=== PATIENT | male | born 1935 | race Caucasian/White ===

== ENCOUNTER 2018-01-27 21:07 | Emergency (ER) | payer MEDICARE, OTHER ==
--- NOTE | 2018-01-27 21:33 | EDM.PDOC ---
ED HPI GENERAL MEDICAL PROBLEM - General Chief Complaint: Back Pain or Injury Stated Complaint: FELL [id number] Time Seen by Provider: 01/27/18 21:28 Source of Information: Reports: Patient, Family History Limitations: Reports: No Limitations - History of Present Illness INITIAL COMMENTS - FREE TEXT/NARRATIVE: pt states got up from commode and slipped on rug and fell to floor ? LOC but got back up by self and called family. family states pt was alert c/o pain right if back and also bumped his head. family state pt did take a pain med [employer] so he can move better. Middle Back Pain Score (Numeric/FACES): 9 - Related Data Allergies Allergy/AdvReac Type Severity Reaction Status Date / Time codeine Allergy Nausea and Verified 01/27/18 22:00 Vomiting Home Meds: Home Meds Donepezil HCl [Aricept] 10 mg PO DAILY 01/27/18 [History] Escitalopram [Lexapro] 10 mg PO DAILY 01/27/18 [History] Famotidine 20 mg PO DAILY 01/27/18 [History] Hydrocodone/Acetaminophen [Hydrocodon-Acetaminophen 5-325] 1 each PO ASDIRECTED PRN 01/27/18 [History] Levothyroxine Sodium [Levo-T] 50 mcg PO DAILY 01/27/18 [History] Memantine HCl [Namenda] 10 mg PO BID 01/27/18 [History] Oxybutynin Chloride [Ditropan Xl] 5 mg PO DAILY 01/27/18 [History] ED ROS GENERAL - Review of Systems Review Of Systems: ROS reveals no pertinent complaints other than HPI. ED EXAM, UPPER BACK/NECK PAIN - Physical Exam Exam: See Below Exam Limited By: No Limitations General Appearance: Alert, WD/WN, No Apparent Distress Eye Exam: Bilateral Eye: PERRL (pupils ess ER @ 4mm) Ears Exam: Hearing Grossly Normal Throat/Mouth Exam: Normal Voice, No Airway Compromise Head Exam: Scalp Swelling, Scalp Abrasions, Scalp Tenderness, Other (occiput , no O/B) Neck Exam: Full Range of Motion, Normal Alignment, Normal Inspection, Muscle Spasm, Other (right scap region) Nexus Criteria: No: Posterior, Midline Cervical Tenderness, Evidence of Intoxication, Altered Level of Consciousness, Focal Neurological Deficit, Painful Distraction Injuries Cardiovascular/Respiratory: Regular Rate, Rhythm GI/Abdominal: Soft, Non-Tender Neurologic: No Motor/Sensory Deficits, Alert, Normal Mood/Affect, Oriented x 3 Psychiatric: Normal Affect, Normal Mood Skin Exam: Normal Color, Warm/Dry Lymphatic: No Adenopathy Course - Vital Signs Last Recorded V/S: Last Vital Signs Temp 36.8 C 01/27/18 21:23 Pulse 50 L 01/27/18 21:23 Resp 18 01/27/18 21:23 BP 119/90 01/27/18 21:23 Pulse Ox 94 L 01/27/18 21:23 - Orders/Labs/Meds Orders: Active Orders 24 hr Category Date Time Status EKG Documentation Completion [RC] STAT Care 01/27/18 21:18 Active Labs: Laboratory Tests 01/27/18 01/27/18 Range/Units 21:25 21:25 WBC 14.5 H (5.0-10.0) 10^3/uL RBC 4.71 (4.6-6.2) 10^6/uL Hgb 14.5 (14.0-18.0) g/dL Hct 44.8 (40.0-54.0) % MCV 95.1 (80-100) fL MCH 30.8 (27.0-34.0) pg MCHC 32.4 L (33.0-35.0) g/dL Plt Count 255 (150-450) 10^3/uL Neut % (Auto) 80.4 H (42.2-75.2) % Lymph % (Auto) 9.4 L (20.5-50.1) % [place] % (Auto) 7.7 (2-8) % Eos % (Auto) 2.3 (1.0-3.0) % Baso % (Auto) 0.2 (0.0-1.0) % Sodium 136 (135-145) mmol/L Potassium 4.3 (3.6-5.0) mmol/L Chloride 99 L (101-111) mmol/L Carbon Dioxide 30.0 (21.0-31.0) mmol/L Anion Gap 11.3 BUN 21 H (7-18) mg/dL Creatinine 1.0 (0.6-1.3) mg/dL Est Cr Clr Drug Dosing 50.51 mL/min Estimated GFR (MDRD) > 60 BUN/Creatinine Ratio 21.00 Glucose 131 H (74-105) mg/dL Calcium 9.8 (8.4-10.2) mg/dl Total Bilirubin 0.5 (0.2-1.0) mg/dL AST 23 (10-42) IU/L ALT 18 (10-60) IU/L Alkaline Phosphatase 62 (42-121) IU/L Troponin I < 0.02 (0.00-0.02) ng/ml Total Protein 7.3 (6.7-8.2) g/dl Albumin 3.9 (3.2-5.5) g/dl Globulin 3.4 Albumin/Globulin Ratio 1.15 - Re-Assessments/Exams Free Text/Narrative Re-Assessment/Exam: 01/27/18 22:56 results discussed with pt & family Departure - Departure Time of Disposition: 22:56 Disposition: Home, Self-Care 01 Condition: Fair Clinical Impression: Left rib fracture Qualifiers: Encounter type: initial encounter Rib fracture type: multiple ribs Fracture type: closed Qualified Code(s): S22.42XA - Multiple fractures of ribs, left side , initial encounter for closed fracture - Discharge Information Instructions: Rib Fracture, [id number] Forms: ED Department Discharge Additional Instructions: 1) rest avoid vigorous activities 2) take regular deep breaths 3) follow up at clinic 4) recheck if there is any change or concern - My Orders Last 24 Hours: My Active Orders 01/27/18 21:18 EKG Documentation Completion [RC] STAT - Assessment/Plan Last 24 Hours: My Active Orders 01/27/18 21:18 EKG Documentation Completion [RC] STAT
[2018-01-27 21:53] LABS: ANION GAP 11.3; CHLORIDE,CL 99 mmol/L (101-111); SODIUM,NA 136 mmol/L (135-145)
== END 2018-01-27 23:05 | disposition home or self-care (01) ==
LOC: DL.ED 21:07
DX: S22.42XA Multiple fractures of ribs, left side, initial encounter for closed fracture (principal); S00.01XA Abrasion of scalp, initial encounter; Z88.5 Allergy status to narcotic agent; Z79.899 Other long term (current) drug therapy; W01.0XXA Fall on same level from slipping, tripping and stumbling without subsequent striking against object, initial encounter; Y92.002 Bathroom of unspecified non-institutional (private) residence as the place of occurrence of the external cause
CPT/HCPCS: 36415; 70450; 71250; 72125; 80053; 84484; 85025; 93005; 99284

== ENCOUNTER 2018-01-30 09:44 | Observation (INO) | payer MEDICARE, OTHER ==
--- NOTE | 2018-01-30 10:01 | EDM.PDOC ---
ED HPI GENERAL MEDICAL PROBLEM - General Chief Complaint: Neurological Problem Stated Complaint: INCREASE CONFUSION. POST FALL 02/26 Time Seen by Provider: 01/30/18 10:00 Source of Information: Reports: Patient, Family (daughter), Old Records, RN, RN Notes Reviewed History Limitations: Reports: Altered Mental Status - History of Present Illness INITIAL COMMENTS - FREE TEXT/NARRATIVE: Pt arrives to ER by ambulance with EMS and pt's daughter reporting pt has acute confusion and disorientation worsening over 2 to 3 days. Pt was seen here on after a fall in his bathroom. He has Hx of dementia. He has been on hydrocodone 5mg/325mg every 4 hours since being discharged from the ER on . Pt is not able to provide any history. Pt's daughter states his dementia has been slowly worsening this past year. She isn't sure if the acute confusion is due to the recent fall, due to progressive dementia, or due to the medication. Pt had a CT Head on 01/27/18 after the fall which showed no acute injury. Onset: Gradual Duration: Day(s): (2-3) Location: Reports: Generalized Quality: Reports: Other (denies pain) Severity: Severe Improves with: Reports: None Worsens with: Reports: Medication (hydrocodone) Associated Symptoms: Reports: No Other Symptoms - Related Data Allergies Allergy/AdvReac Type Severity Reaction Status Date / Time codeine Allergy Nausea and Verified 01/30/18 10:20 Vomiting Home Meds: Home Meds Donepezil HCl [Aricept] 10 mg PO DAILY 01/27/18 [History] Escitalopram [Lexapro] 10 mg PO DAILY 01/27/18 [History] Famotidine 20 mg PO DAILY 01/27/18 [History] Hydrocodone/Acetaminophen [Hydrocodon-Acetaminophen 5-325] 1 each PO ASDIRECTED PRN 01/27/18 [History] Levothyroxine Sodium [Levo-T] 50 mcg PO DAILY 01/27/18 [History] Memantine HCl [Namenda] 10 mg PO BID 01/27/18 [History] Oxybutynin Chloride [Ditropan Xl] 5 mg PO TID 01/27/18 [History] Acetaminophen [Tylenol] 650 mg PO Q8H PRN 01/30/18 [History] Gabapentin [Neurontin] 200 mg PO DAILY 01/30/18 [History] Menthol/Zinc Oxide [Calmoseptine] 3.5 gm TOP BID 01/30/18 [History] Naproxen Sodium [Aleve] 220 mg PO BID 01/30/18 [History] Polyethylene Glycol 3350 [MiraLAX] 17 gm PO BID 01/30/18 [History] Tamsulosin HCl 0.4 mg PO 01/30/18 [History] Past Medical History HEENT History: Reports: Hard of Hearing, Impaired Vision Gastrointestinal History: Reports: Chronic Constipation, GERD Genitourinary History: Reports: BPH, Prostate Disorder, Renal Calculus, Retention, Urinary, Urinary Incontinence Musculoskeletal History: Reports: Fracture (Rt clavicle, multiple ribs) Neurological History: Reports: Alzheimers Disease Psychiatric History: Reports: Dementia, Depression Endocrine/Metabolic History: Reports: Hypothyroidism, Obesity/BMI 30+ - Past Surgical History Musculoskeletal Surgical History: Reports: ORIF (Rt clavicle) Social & Family History - Family History Family Medical History: Unobtainable - Tobacco Use Smoking Status *Q: Unknown Ever Smoked - Caffeine Use Caffeine Use: Reports: None - Alcohol Use Alcohol Use History: No - Recreational Drug Use Recreational Drug Use: No - Living Situation & Occupation Living situation: Reports: , Assisted Living Occupation: Retired ED ROS GENERAL - Review of Systems Review Of Systems: Unable To Obtain (due to confusion) ED EXAM, GENERAL - Physical Exam Exam: See Below Exam Limited By: Altered Mental Status General Appearance: Alert, WD/WN, No Apparent Distress, Obese Eye Exam: Bilateral Eye: Normal Inspection Ears: Normal External Exam, Hearing Loss (mild/moderate, chronic/stable per family) Nose: Normal Inspection, Normal Mucosa, No Blood Throat/Mouth: Normal Inspection, Normal Lips, Normal Oropharynx, Normal Voice, No Airway Compromise Head: Atraumatic, Normocephalic Neck: Normal Inspection, Supple, Non-Tender, Full Range of Motion Respiratory/Chest: No Respiratory Distress, Lungs Clear, No Accessory Muscle Use , Chest Non-Tender, Decreased Breath Sounds Cardiovascular: Normal Peripheral Pulses, Regular Rate, Rhythm, No JVD, Bradycardia GI/Abdominal: Normal Bowel Sounds, Soft, Non-Tender, No Distention, No Abnormal Bruit, Pelvis Stable. No: Guarding, Rigid, Rebound (Male) Exam: Deferred Rectal (Males) Exam: Deferred Back Exam: Normal Inspection, Full Range of Motion. No: CVA Tenderness (L), CVA Tenderness (R) Extremities: Normal Range of Motion, Non-Tender, Normal Capillary Refill, Pedal Edema (mild, wearing compression stockings) Neurological: Alert, Oriented (to person only), No Motor/Sensory Deficits, Confused, Memory Loss Recent Events Psychiatric: Normal Affect, Normal Mood Skin Exam: Warm, Dry, Intact, Normal Color, No Rash Course - Vital Signs Last Recorded V/S: Last Vital Signs Temp 37.1 C 01/30/18 09:58 Pulse 60 01/30/18 09:58 Resp 16 01/30/18 09:58 BP 144/53 H 01/30/18 09:58 Pulse Ox 95 01/30/18 09:58 - Orders/Labs/Meds Orders: Active Orders 24 hr Category Date Time Status Peripheral IV Care [RC] . DIRECTED Care 01/30/18 10:25 Active CULTURE BLOOD [BC] Stat Lab 01/30/18 10:25 Ordered CULTURE BLOOD [BC] Stat Lab 01/30/18 10:40 Received Sodium Chloride 0.9% [Saline Flush] Med 01/30/18 10:21 Active 10 ml FLUSH ASDIRECTED PRN Blood Culture x2 Reflex Set [OM.PC] Stat Oth 01/30/18 10:23 Ordered Peripheral IV Insertion Adult [OM.PC] Stat Oth 01/30/18 10:23 Ordered Medication Orders Sodium Chloride (Saline Flush) 10 ml FLUSH ASDIRECTED PRN PRN Reason: Keep Vein Open Last Admin: 01/30/18 10:58 Dose: 10 ml Labs: Laboratory Tests 01/30/18 01/30/18 01/30/18 Range/Units 10:23 10:30 10:40 WBC 10.1 H (5.0-10.0) 10^3/uL RBC 4.35 L (4.6-6.2) 10^6/uL Hgb 13.5 L (14.0-18.0) g/dL Hct 41.6 (40.0-54.0) % MCV 95.6 (80-100) fL MCH 31.0 (27.0-34.0) pg MCHC 32.5 L (33.0-35.0) g/dL Plt Count 229 (150-450) 10^3/uL Neut % (Auto) 75.2 (42.2-75.2) % Lymph % (Auto) 10.0 L (20.5-50.1) % [place] % (Auto) 11.3 H (2-8) % Eos % (Auto) 3.3 H (1.0-3.0) % Baso % (Auto) 0.2 (0.0-1.0) % Sodium (135-145) mmol/L Potassium (3.6-5.0) mmol/L Chloride (101-111) mmol/L Carbon Dioxide (21.0-31.0) mmol/L Anion Gap BUN (7-18) mg/dL Creatinine (0.6-1.3) mg/dL Est Cr Clr Drug Dosing mL/min Estimated GFR (MDRD) BUN/Creatinine Ratio Glucose (74-105) mg/dL Lactic Acid (0.5-2.2) mmol/L Calcium (8.4-10.2) mg/dl Total Bilirubin (0.2-1.0) mg/dL AST (10-42) IU/L ALT (10-60) IU/L Alkaline Phosphatase (42-121) IU/L Total Protein (6.7-8.2) g/dl Albumin (3.2-5.5) g/dl Globulin Albumin/Globulin Ratio Urine Color Yellow (YELLOW) Urine Appearance Clear (CLEAR) Urine pH 6.0 (5.0-9.0) Ur Specific [place] 1.020 (1.005-1.030) Urine Protein Negative (NEGATIVE) Urine Glucose (UA) Negative (NEGATIVE) Urine Ketones Negative (NEGATIVE) Urine Occult Blood Trace-intact H (NEGATIVE) Urine Nitrite Negative (NEGATIVE) Urine Bilirubin Negative (NEGATIVE) Urine Urobilinogen 0.2 (0.2-1.0) mg/dL Ur Leukocyte Esterase Negative (NEGATIVE) Urine RBC 0-5 /HPF Urine WBC 0-5 (0-5/HPF) /HPF Ur Epithelial Cells Rare /HPF Amorphous Sediment Few (0/HPF) /HPF Urine Bacteria Not seen (0-FEW/HPF) /HPF Urine Mucus Moderate H /LPF Urine Opiates Screen Positive H (NEGATIVE) Ur Oxycodone Screen Negative (NEGATIVE) Urine Methadone Screen Negative (NEGATIVE) Ur Barbiturates Screen Negative (NEGATIVE) U Tricyclic Antidepress Negative (NEGATIVE) Ur Phencyclidine Scrn Negative (NEGATIVE) Ur Amphetamine Screen Negative (NEGATIVE) U Methamphetamines Scrn Negative (NEGATIVE) Urine MDMA Screen Negative (NEGATIVE) U Benzodiazepines Scrn Negative (NEGATIVE) Urine Cocaine Screen Negative (NEGATIVE) U Marijuana (THC) Screen Negative (NEGATIVE) 01/30/18 01/30/18 Range/Units 10:40 10:40 WBC (5.0-10.0) 10^3/uL RBC (4.6-6.2) 10^6/uL Hgb (14.0-18.0) g/dL Hct (40.0-54.0) % MCV (80-100) fL MCH (27.0-34.0) pg MCHC (33.0-35.0) g/dL Plt Count (150-450) 10^3/uL Neut % (Auto) (42.2-75.2) % Lymph % (Auto) (20.5-50.1) % [place] % (Auto) (2-8) % Eos % (Auto) (1.0-3.0) % Baso % (Auto) (0.0-1.0) % Sodium 137 (135-145) mmol/L Potassium 4.5 (3.6-5.0) mmol/L Chloride 100 L (101-111) mmol/L Carbon Dioxide 30.0 (21.0-31.0) mmol/L Anion Gap 11.5 BUN 22 H (7-18) mg/dL Creatinine 0.9 (0.6-1.3) mg/dL Est Cr Clr Drug Dosing 60.17 mL/min Estimated GFR (MDRD) > 60 BUN/Creatinine Ratio 24.44 Glucose 100 (74-105) mg/dL Lactic Acid 1.7 (0.5-2.2) mmol/L Calcium 9.5 (8.4-10.2) mg/dl Total Bilirubin 0.7 (0.2-1.0) mg/dL AST 24 (10-42) IU/L ALT 21 (10-60) IU/L Alkaline Phosphatase 65 (42-121) IU/L Total Protein 6.8 (6.7-8.2) g/dl Albumin 3.5 (3.2-5.5) g/dl Globulin 3.3 Albumin/Globulin Ratio 1.06 Urine Color (YELLOW) Urine Appearance (CLEAR) Urine pH (5.0-9.0) Ur Specific [place] (1.005-1.030) Urine Protein (NEGATIVE) Urine Glucose (UA) (NEGATIVE) Urine Ketones (NEGATIVE) Urine Occult Blood (NEGATIVE) Urine Nitrite (NEGATIVE) Urine Bilirubin (NEGATIVE) Urine Urobilinogen (0.2-1.0) mg/dL Ur Leukocyte Esterase (NEGATIVE) Urine RBC /HPF Urine WBC (0-5/HPF) /HPF Ur Epithelial Cells /HPF Amorphous Sediment (0/HPF) /HPF Urine Bacteria (0-FEW/HPF) /HPF Urine Mucus /LPF Urine Opiates Screen (NEGATIVE) Ur Oxycodone Screen (NEGATIVE) Urine Methadone Screen (NEGATIVE) Ur Barbiturates Screen (NEGATIVE) U Tricyclic Antidepress (NEGATIVE) Ur Phencyclidine Scrn (NEGATIVE) Ur Amphetamine Screen (NEGATIVE) U Methamphetamines Scrn (NEGATIVE) Urine MDMA Screen (NEGATIVE) U Benzodiazepines Scrn (NEGATIVE) Urine Cocaine Screen (NEGATIVE) U Marijuana (THC) Screen (NEGATIVE) Meds: Medications Generic Name Dose Route Start Last Admin Trade Name Freq PRN Reason Stop Dose Admin Sodium Chloride 10 ml 01/30/18 10:21 01/30/18 10:58 Saline Flush FLUSH 10 ml ASDIRECTED PRN Administration Keep Vein Open - Radiology Interpretation Free Text/Narrative:: Chest XR: no acute findings, prior fractures of Rt 3rd & 4th ribs, old Rt clavicle fx s/p ORIF with intact hardware, stable left base atelectasis per Rad. report. Departure - Departure Time of Disposition: 12:14 (admitted to Dr. Martinez) Disposition: Refer to Observation Condition: Fair Clinical Impression: History of dementia Altered mental status Qualifiers: Altered mental status type: delirium Qualified Code(s): R41.0 - Disorientation , unspecified - Discharge Information *PRESCRIPTION DRUG MONITORING PROGRAM REVIEWED*: Not Applicable *COPY OF PRESCRIPTION DRUG MONITORING REPORT IN PATIENT ALE: Not Applicable Referrals: Maria Del Rosario Turner PA [Primary Care Provider] - Forms: ED Department Discharge - My Orders Last 24 Hours: My Active Orders 01/30/18 10:21 Sodium Chloride 0.9% [Saline Flush] 10 ml FLUSH ASDIRECTED PRN 01/30/18 10:23 Blood Culture x2 Reflex Set [OM.PC] Stat Peripheral IV Insertion Adult [OM.PC] Stat 01/30/18 10:25 Peripheral IV Care [RC] . DIRECTED CULTURE BLOOD [BC] Stat 01/30/18 10:40 CULTURE BLOOD [BC] Stat - Assessment/Plan Last 24 Hours: My Active Orders 01/30/18 10:21 Sodium Chloride 0.9% [Saline Flush] 10 ml FLUSH ASDIRECTED PRN 01/30/18 10:23 Blood Culture x2 Reflex Set [OM.PC] Stat Peripheral IV Insertion Adult [OM.PC] Stat 01/30/18 10:25 Peripheral IV Care [RC] . DIRECTED CULTURE BLOOD [BC] Stat 01/30/18 10:40 CULTURE BLOOD [BC] Stat
[2018-01-30] MEDS ORDERED: Sodium Chloride 0.9% 10 ML Syringe FLUSH PRN (10:21)
[2018-01-30 11:14] LABS: ANION GAP 11.5; CHLORIDE,CL 100 mmol/L (101-111); SODIUM,NA 137 mmol/L (135-145)
--- NOTE | 2018-01-30 12:04 | CR ---
Clinical history: 82-year-old male on pain killers to treat multiple right rib fractures (fell Dec). Interpretation: Upright AP portable chest film confirms evidence of extensive right shoulder surgery (orthopedic prosthesis proximal right humerus and plate with numerous screws distal half of the clavi karuna) as well as numerous underlying lateral right rib fractures with associated pleural hematoma/fibr osis that were demonstrated on [address] exam i.e. unchanged. Normal cardiac silhouette. Left-sided aortic arch. No cephalization of flow, signs of alveolar edema or dependent pleural effusion (external campus monitor leads). Chronic basilar atelectasis/fibrosis particularly on the left. No new lung mass, hilar lymphadenopathy or focal lobar pneumonia. No pneumothorax. CONCLUSION: No acute new cardiopulmonary abnormality.
[2018-01-30] MEDS ORDERED: Ibuprofen 400 MG Tab PO PRN (15:40)
--- NOTE | 2018-01-30 15:50 | PCM.HP ---
H&P History of Present Illness - General Date of Service: 01/30/18 Admit Problem/Dx: Admission Diagnosis/Problem Admission Diagnosis/Problem Ambulatory dysfunction Source of Information: Patient, Family History Limitations: Reports: Altered Mental Status - History of Present Illness Initial Comments - Free Text/Narative: 82 yo M with PMH of dementia was admitted via the ED after increased confusion and ambulatory dysfunction. The patient's history was limited by AMS. Patient was confused during evaluation. Additional history was provided by the patient's daughter at bedside. The patient currently lives in assisted living. On 01/27, he had a mechanical fall at home and was brought to the ED. He had a trauma evaluation which revealed rib fractures and was discharged home. He was prescribed opioids for pain management. After receiving repeat doses of the oral opioids, he has developed worsening confusion and he was brought back to the ED for this. I saw and examined the patient at the bedside. He was still remarkably confused. He had no pain, no chest pain. No fever or dysuria and urinalysis in the ED was not suggestive of UTI - Related Data Allergies/Adverse Reactions: Allergies Allergy/AdvReac Type Severity Reaction Status Date / Time codeine Allergy Nausea and Verified 01/30/18 14:52 Vomiting Home Medications: Home Meds Donepezil HCl [Aricept] 10 mg PO BEDTIME 01/27/18 [History] Escitalopram [Lexapro] 10 mg PO BEDTIME 01/27/18 [History] Famotidine 20 mg PO DAILY 01/27/18 [History] Hydrocodone/Acetaminophen [Hydrocodon-Acetaminophen 5-325] 1 tab PO Q6H PRN [History] Levothyroxine Sodium [Levo-T] 50 mcg PO DAILY 01/27/18 [History] Memantine HCl [Namenda] 10 mg PO BID 01/27/18 [History] Oxybutynin Chloride [Ditropan Xl] 5 mg PO TID 01/27/18 [History] Acetaminophen [Tylenol] 650 mg PO Q8H PRN 01/30/18 [History] Dextromethorphan/guaiFENesin [Mucinex DM ER 600-30 MG] 1 tab PO BID PRN [History] Gabapentin [Neurontin] 200 mg PO BEDTIME 01/30/18 [History] Hydrocortisone Acetate [Anusol-Hc] 25 mg RC Q12H PRN 01/30/18 [History] Menthol/Zinc Oxide [Calmoseptine] 1 applic TOP BID 01/30/18 [History] Naproxen Sodium [Aleve] 220 mg PO BID 01/30/18 [History] Ondansetron [Zofran ODT] 4 mg PO Q4H PRN 01/30/18 [History] Polyethylene Glycol 3350 [MiraLAX] 17 gm PO DAILY 01/30/18 [History] Tamsulosin HCl 0.4 mg PO BEDTIME 01/30/18 [History] Past Medical History - Past Health History Medical/Surgical History: Denies Medical/Surgical History HEENT History: Reports: Impaired Vision Cardiovascular History: Reports: High Cholesterol Respiratory History: Reports: None Gastrointestinal History: Reports: Chronic Constipation, GERD Genitourinary History: Reports: BPH, Prostate Disorder, Renal Calculus, Retention, Urinary, Urinary Incontinence Other Genitourinary History: gross hematuria Musculoskeletal History: Reports: Fracture, Other (See Below) Other Musculoskeletal History: shoulder fractures Neurological History: Reports: Alzheimers Disease Other Neuro History: amnesia Psychiatric History: Reports: Anxiety, Dementia, Depression Endocrine/Metabolic History: Reports: Hypothyroidism, Obesity/BMI 30+ Hematologic History: Reports: None Immunologic History: Reports: None Oncologic (Cancer) History: Reports: Prostate Dermatologic History: Reports: None - Past Surgical History HEENT Surgical History: Reports: None Cardiovascular Surgical History: Reports: None GI Surgical History: Reports: None Male Surgical History: Reports: None Endocrine Surgical History: Reports: None Neurological Surgical History: Reports: None Musculoskeletal Surgical History: Reports: Knee Replacement, ORIF Oncologic Surgical History: Reports: None Social & Family History - Family History Family Medical History: Unobtainable - Tobacco Use Smoking Status *Q: Never Smoker Second Hand Smoke Exposure: No - Caffeine Use Caffeine Use: Reports: None - Recreational Drug Use Recreational Drug Use: No - Living Situation & Occupation Living situation: Reports: , Assisted Living Occupation: Retired H&P Review of Systems - Review of Systems: Review Of Systems: Unable To Obtain (due to AMS and confusion) Exam - Exam Exam: See Below - Vital Signs Vital Signs: Last Vital Signs Temp 36.9 C 01/30/18 14:35 Pulse 54 L 01/30/18 14:35 Resp 14 01/30/18 14:35 BP 170/55 H 01/30/18 14:35 Pulse Ox 95 01/30/18 14:35 Weight: 103.419 kg - Exam General: Alert, Oriented HEENT: Conjunctiva Clear Neck: Supple, Trachea Midline Lungs: Clear to Auscultation, Normal Respiratory Effort Cardiovascular: Regular Rate, Regular Rhythm GI/Abdominal Exam: Normal Bowel Sounds Extremities: Normal Inspection, Normal Range of Motion Neuro Extensive - Mental Status: Oriented x3 (confused), Other (confused) - Patient Data Lab Results Last 24 hrs: Laboratory Results - last 24 hr 01/30/18 01/30/18 01/30/18 Range/Units 10:23 10:30 10:40 WBC 10.1 H (5.0-10.0) 10^3/uL RBC 4.35 L (4.6-6.2) 10^6/uL Hgb 13.5 L (14.0-18.0) g/dL Hct 41.6 (40.0-54.0) % MCV 95.6 (80-100) fL MCH 31.0 (27.0-34.0) pg MCHC 32.5 L (33.0-35.0) g/dL Plt Count 229 (150-450) 10^3/uL Neut % (Auto) 75.2 (42.2-75.2) % Lymph % (Auto) 10.0 L (20.5-50.1) % [place] % (Auto) 11.3 H (2-8) % Eos % (Auto) 3.3 H (1.0-3.0) % Baso % (Auto) 0.2 (0.0-1.0) % Sodium (135-145) mmol/L Potassium (3.6-5.0) mmol/L Chloride (101-111) mmol/L Carbon Dioxide (21.0-31.0) mmol/L Anion Gap BUN (7-18) mg/dL Creatinine (0.6-1.3) mg/dL Est Cr Clr Drug Dosing mL/min Estimated GFR (MDRD) BUN/Creatinine Ratio Glucose (74-105) mg/dL Lactic Acid (0.5-2.2) mmol/L Calcium (8.4-10.2) mg/dl Total Bilirubin (0.2-1.0) mg/dL AST (10-42) IU/L ALT (10-60) IU/L Alkaline Phosphatase (42-121) IU/L Total Protein (6.7-8.2) g/dl Albumin (3.2-5.5) g/dl Globulin Albumin/Globulin Ratio Urine Color Yellow (YELLOW) Urine Appearance Clear (CLEAR) Urine pH 6.0 (5.0-9.0) Ur Specific [place] 1.020 (1.005-1.030) Urine Protein Negative (NEGATIVE) Urine Glucose (UA) Negative (NEGATIVE) Urine Ketones Negative (NEGATIVE) Urine Occult Blood Trace-intact H (NEGATIVE) Urine Nitrite Negative (NEGATIVE) Urine Bilirubin Negative (NEGATIVE) Urine Urobilinogen 0.2 (0.2-1.0) mg/dL Ur Leukocyte Esterase Negative (NEGATIVE) Urine RBC 0-5 /HPF Urine WBC 0-5 (0-5/HPF) /HPF Ur Epithelial Cells Rare /HPF Amorphous Sediment Few (0/HPF) /HPF Urine Bacteria Not seen (0-FEW/HPF) /HPF Urine Mucus Moderate H /LPF Urine Opiates Screen Positive H (NEGATIVE) Ur Oxycodone Screen Negative (NEGATIVE) Urine Methadone Screen Negative (NEGATIVE) Ur Barbiturates Screen Negative (NEGATIVE) U Tricyclic Antidepress Negative (NEGATIVE) Ur Phencyclidine Scrn Negative (NEGATIVE) Ur Amphetamine Screen Negative (NEGATIVE) U Methamphetamines Scrn Negative (NEGATIVE) Urine MDMA Screen Negative (NEGATIVE) U Benzodiazepines Scrn Negative (NEGATIVE) Urine Cocaine Screen Negative (NEGATIVE) U Marijuana (THC) Screen Negative (NEGATIVE) 01/30/18 01/30/18 Range/Units 10:40 10:40 WBC (5.0-10.0) 10^3/uL RBC (4.6-6.2) 10^6/uL Hgb (14.0-18.0) g/dL Hct (40.0-54.0) % MCV (80-100) fL MCH (27.0-34.0) pg MCHC (33.0-35.0) g/dL Plt Count (150-450) 10^3/uL Neut % (Auto) (42.2-75.2) % Lymph % (Auto) (20.5-50.1) % [place] % (Auto) (2-8) % Eos % (Auto) (1.0-3.0) % Baso % (Auto) (0.0-1.0) % Sodium 137 (135-145) mmol/L Potassium 4.5 (3.6-5.0) mmol/L Chloride 100 L (101-111) mmol/L Carbon Dioxide 30.0 (21.0-31.0) mmol/L Anion Gap 11.5 BUN 22 H (7-18) mg/dL Creatinine 0.9 (0.6-1.3) mg/dL Est Cr Clr Drug Dosing 60.17 mL/min Estimated GFR (MDRD) > 60 BUN/Creatinine Ratio 24.44 Glucose 100 (74-105) mg/dL Lactic Acid 1.7 (0.5-2.2) mmol/L Calcium 9.5 (8.4-10.2) mg/dl Total Bilirubin 0.7 (0.2-1.0) mg/dL AST 24 (10-42) IU/L ALT 21 (10-60) IU/L Alkaline Phosphatase 65 (42-121) IU/L Total Protein 6.8 (6.7-8.2) g/dl Albumin 3.5 (3.2-5.5) g/dl Globulin 3.3 Albumin/Globulin Ratio 1.06 Urine Color (YELLOW) Urine Appearance (CLEAR) Urine pH (5.0-9.0) Ur Specific [place] (1.005-1.030) Urine Protein (NEGATIVE) Urine Glucose (UA) (NEGATIVE) Urine Ketones (NEGATIVE) Urine Occult Blood (NEGATIVE) Urine Nitrite (NEGATIVE) Urine Bilirubin (NEGATIVE) Urine Urobilinogen (0.2-1.0) mg/dL Ur Leukocyte Esterase (NEGATIVE) Urine RBC /HPF Urine WBC (0-5/HPF) /HPF Ur Epithelial Cells /HPF Amorphous Sediment (0/HPF) /HPF Urine Bacteria (0-FEW/HPF) /HPF Urine Mucus /LPF Urine Opiates Screen (NEGATIVE) Ur Oxycodone Screen (NEGATIVE) Urine Methadone Screen (NEGATIVE) Ur Barbiturates Screen (NEGATIVE) U Tricyclic Antidepress (NEGATIVE) Ur Phencyclidine Scrn (NEGATIVE) Ur Amphetamine Screen (NEGATIVE) U Methamphetamines Scrn (NEGATIVE) Urine MDMA Screen (NEGATIVE) U Benzodiazepines Scrn (NEGATIVE) Urine Cocaine Screen (NEGATIVE) U Marijuana (THC) Screen (NEGATIVE) Result Diagrams: 01/30/18 10:40 01/30/18 10:40 Problem List Initiated/Reviewed/Updated: Yes Orders Last 24hrs: Active Orders 24 hr Category Date Time Status Patient Status [ADT] Routine ADT 01/30/18 15:40 Ordered Ambulate [RC] ASDIRECTED Care 01/30/18 15:40 Ordered Communication Order [RC] ROUTINE Care 01/30/18 15:43 Ordered VTE/DVT Education [RC] PER UNIT ROUTINE Care 01/30/18 15:40 Ordered Vital Signs [RC] Q4H Care 01/30/18 15:40 Ordered OT Evaluation and Treatment [CONS] Routine Cons 01/30/18 15:43 Ordered PT Evaluation and Treatment [CONS] Routine Cons 01/30/18 15:43 Ordered CULTURE BLOOD [BC] Stat Lab 01/30/18 10:25 Ordered CULTURE BLOOD [BC] Stat Lab 01/30/18 10:40 Received Acetaminophen [Tylenol] Med 01/30/18 15:40 Ordered 650 mg PO Q4H PRN Docusate Sodium/Sennosides [Senna Plus] Med 01/30/18 15:40 Ordered 1 tab PO BEDTIME PRN Donepezil [Aricept] Med 01/30/18 21:00 Ordered 10 mg PO BEDTIME Famotidine [Pepcid] Med 01/31/18 09:00 Ordered 20 mg PO DAILY Heparin Sodium Med 01/30/18 22:00 Ordered 5,000 units SUBCUT Q8HR Ibuprofen [Motrin] Med 01/30/18 15:40 Ordered 400 mg PO Q6H PRN Levothyroxine [Synthroid] Med 01/31/18 09:00 Ordered 50 mcg PO DAILY Memantine [Namenda] Med 01/30/18 21:00 Ordered 10 mg PO BID Oxybutynin [Oxybutynin ER] Med 01/30/18 21:00 Ordered 5 mg PO TID Polyethylene Glycol 3350 [MiraLAX] Med 01/31/18 09:00 Ordered 17 gm PO DAILY Sodium Chloride 0.9% [Saline Flush] Med 01/30/18 10:21 Active 10 ml FLUSH ASDIRECTED PRN Tamsulosin [Flomax] Med 01/30/18 21:00 Ordered 0.4 mg PO BEDTIME Blood Culture x2 Reflex Set [OM.PC] Stat Oth 01/30/18 10:23 Ordered Peripheral IV Insertion Adult [OM.PC] Stat Oth 01/30/18 10:23 Ordered Resuscitation Status Routine Resus Stat 01/30/18 15:40 Ordered Medication Orders Acetaminophen (Tylenol) 650 mg PO Q4H PRN PRN Reason: Pain (Mild 1-3)/fever Donepezil HCl (Aricept) 10 mg PO BEDTIME TONY Famotidine (Pepcid) 20 mg PO DAILY TONY Heparin Sodium (Porcine) (Heparin Sodium) 5,000 units SUBCUT Q8HR TONY Ibuprofen (Motrin) 400 mg PO Q6H PRN PRN Reason: Pain (moderate 4-6) Levothyroxine Sodium (Synthroid) 50 mcg PO DAILY TONY Memantine (Namenda) 10 mg PO BID TONY Oxybutynin Chloride (Oxybutynin Er) 5 mg PO TID TONY Polyethylene Glycol (Miralax) 17 gm PO DAILY TONY Senna/Docusate Sodium (Senna Plus) 1 tab PO BEDTIME PRN PRN Reason: Constipation Sodium Chloride (Saline Flush) 10 ml FLUSH ASDIRECTED PRN PRN Reason: Keep Vein Open Last Admin: 01/30/18 10:58 Dose: 10 ml Tamsulosin HCl (Flomax) 0.4 mg PO BEDTIME [facility] Assessment/Plan Comment:: #Altered mental status, acute encephalopathy likely medication induced from opioids will hold opioids, also hold gabapentin and escitalopram monitor overnight for improvement in confusion #ambulatory dysfunction fall last week PT/OT #rib fracture pain mgt with tylenol and ibuprofen #dementia continue donepezil and namenda #DVT ppx [place] heparin
[2018-01-30] MEDS: Acetaminophen 325 MG Tab PO PRN (17:45)
[2018-01-30] MEDS: Memantine 10 MG Tab PO SCH (20:59)
[2018-01-30] MEDS: Donepezil 10 MG Tab PO SCH (20:59)
[2018-01-30] MEDS: Heparin Sodium 5,000 Units/ML Vial SUBCUT SCH (20:59)
[2018-01-30] MEDS: Tamsulosin 0.4 MG Cap.ER PO SCH (20:59)
[2018-01-30] MEDS: Oxybutynin 5 MG Tab PO SCH (20:59)
[2018-01-30] MEDS ORDERED: Haloperidol Lactate 5 MG/ML SDV IVPUSH ONE (22:38)
[2018-01-31] MEDS ORDERED: Haloperidol Lactate 5 MG/ML SDV IVPUSH STA (01:06)
[2018-01-31] MEDS: Acetaminophen 325 MG Tab PO PRN ×2 (02:15→19:11)
[2018-01-31] MEDS: Heparin Sodium 5,000 Units/ML Vial SUBCUT SCH ×3 (06:00→21:24)
[2018-01-31] MEDS: Levothyroxine 50 MCG Tab PO SCH (06:00)
[2018-01-31] MEDS: Polyethylene Glycol 3350 Powder 17 GM Packet PO SCH (09:09)
[2018-01-31] MEDS: Memantine 10 MG Tab PO SCH ×2 (09:10→21:25)
[2018-01-31] MEDS: Oxybutynin 5 MG Tab PO SCH ×3 (09:11→21:25)
[2018-01-31] MEDS: Famotidine 20 MG Tab PO SCH (09:11)
--- NOTE | 2018-01-31 10:10 | PCM.PN ---
- General Info Date of Service: 01/31/18 Admission Dx/Problem (Free Text): Admission Diagnosis/Problem Admission Diagnosis/Problem Ambulatory dysfunction Subjective Update: Patient was delirious last night and needed haldol 2mg IV twice to control his agitation This morning, he is calm, sleepy He has no new complaints. Functional Status: Reports: Pain Controlled - Review of Systems General: Denies: Fever HEENT: Reports: No Symptoms Pulmonary: Reports: No Symptoms Cardiovascular: Reports: No Symptoms Gastrointestinal: Reports: No Symptoms Genitourinary: Reports: No Symptoms Musculoskeletal: Reports: No Symptoms Neurological: Reports: Other (delirium overnight) - Patient Data Vitals - Most Recent: Last Vital Signs Temp 36.6 C 01/31/18 08:07 Pulse 61 01/31/18 08:07 Resp 20 01/31/18 08:07 BP 171/63 H 01/31/18 08:07 Pulse Ox 93 L 01/31/18 08:07 Weight - Most Recent: 103.419 kg I&O - Last 24 Hours: Intake & Output 01/30/18 01/31/18 01/31/18 22:59 06:59 14:59 Intake Total 440 300 Output Total 300 Balance 440 0 Lab Results Last 24 Hours: Laboratory Results - last 24 hr 01/30/18 01/30/18 01/30/18 Range/Units 10:23 10:30 10:40 WBC 10.1 H (5.0-10.0) 10^3/uL RBC 4.35 L (4.6-6.2) 10^6/uL Hgb 13.5 L (14.0-18.0) g/dL Hct 41.6 (40.0-54.0) % MCV 95.6 (80-100) fL MCH 31.0 (27.0-34.0) pg MCHC 32.5 L (33.0-35.0) g/dL Plt Count 229 (150-450) 10^3/uL Neut % (Auto) 75.2 (42.2-75.2) % Lymph % (Auto) 10.0 L (20.5-50.1) % [place] % (Auto) 11.3 H (2-8) % Eos % (Auto) 3.3 H (1.0-3.0) % Baso % (Auto) 0.2 (0.0-1.0) % Sodium (135-145) mmol/L Potassium (3.6-5.0) mmol/L Chloride (101-111) mmol/L Carbon Dioxide (21.0-31.0) mmol/L Anion Gap BUN (7-18) mg/dL Creatinine (0.6-1.3) mg/dL Est Cr Clr Drug Dosing mL/min Estimated GFR (MDRD) BUN/Creatinine Ratio Glucose (74-105) mg/dL Lactic Acid (0.5-2.2) mmol/L Calcium (8.4-10.2) mg/dl Total Bilirubin (0.2-1.0) mg/dL AST (10-42) IU/L ALT (10-60) IU/L Alkaline Phosphatase (42-121) IU/L Total Protein (6.7-8.2) g/dl Albumin (3.2-5.5) g/dl Globulin Albumin/Globulin Ratio Urine Color Yellow (YELLOW) Urine Appearance Clear (CLEAR) Urine pH 6.0 (5.0-9.0) Ur Specific [place] 1.020 (1.005-1.030) Urine Protein Negative (NEGATIVE) Urine Glucose (UA) Negative (NEGATIVE) Urine Ketones Negative (NEGATIVE) Urine Occult Blood Trace-intact H (NEGATIVE) Urine Nitrite Negative (NEGATIVE) Urine Bilirubin Negative (NEGATIVE) Urine Urobilinogen 0.2 (0.2-1.0) mg/dL Ur Leukocyte Esterase Negative (NEGATIVE) Urine RBC 0-5 /HPF Urine WBC 0-5 (0-5/HPF) /HPF Ur Epithelial Cells Rare /HPF Amorphous Sediment Few (0/HPF) /HPF Urine Bacteria Not seen (0-FEW/HPF) /HPF Urine Mucus Moderate H /LPF Urine Opiates Screen Positive H (NEGATIVE) Ur Oxycodone Screen Negative (NEGATIVE) Urine Methadone Screen Negative (NEGATIVE) Ur Barbiturates Screen Negative (NEGATIVE) U Tricyclic Antidepress Negative (NEGATIVE) Ur Phencyclidine Scrn Negative (NEGATIVE) Ur Amphetamine Screen Negative (NEGATIVE) U Methamphetamines Scrn Negative (NEGATIVE) Urine MDMA Screen Negative (NEGATIVE) U Benzodiazepines Scrn Negative (NEGATIVE) Urine Cocaine Screen Negative (NEGATIVE) U Marijuana (THC) Screen Negative (NEGATIVE) 01/30/18 01/30/18 Range/Units 10:40 10:40 WBC (5.0-10.0) 10^3/uL RBC (4.6-6.2) 10^6/uL Hgb (14.0-18.0) g/dL Hct (40.0-54.0) % MCV (80-100) fL MCH (27.0-34.0) pg MCHC (33.0-35.0) g/dL Plt Count (150-450) 10^3/uL Neut % (Auto) (42.2-75.2) % Lymph % (Auto) (20.5-50.1) % [place] % (Auto) (2-8) % Eos % (Auto) (1.0-3.0) % Baso % (Auto) (0.0-1.0) % Sodium 137 (135-145) mmol/L Potassium 4.5 (3.6-5.0) mmol/L Chloride 100 L (101-111) mmol/L Carbon Dioxide 30.0 (21.0-31.0) mmol/L Anion Gap 11.5 BUN 22 H (7-18) mg/dL Creatinine 0.9 (0.6-1.3) mg/dL Est Cr Clr Drug Dosing 60.17 mL/min Estimated GFR (MDRD) > 60 BUN/Creatinine Ratio 24.44 Glucose 100 (74-105) mg/dL Lactic Acid 1.7 (0.5-2.2) mmol/L Calcium 9.5 (8.4-10.2) mg/dl Total Bilirubin 0.7 (0.2-1.0) mg/dL AST 24 (10-42) IU/L ALT 21 (10-60) IU/L Alkaline Phosphatase 65 (42-121) IU/L Total Protein 6.8 (6.7-8.2) g/dl Albumin 3.5 (3.2-5.5) g/dl Globulin 3.3 Albumin/Globulin Ratio 1.06 Urine Color (YELLOW) Urine Appearance (CLEAR) Urine pH (5.0-9.0) Ur Specific [place] (1.005-1.030) Urine Protein (NEGATIVE) Urine Glucose (UA) (NEGATIVE) Urine Ketones (NEGATIVE) Urine Occult Blood (NEGATIVE) Urine Nitrite (NEGATIVE) Urine Bilirubin (NEGATIVE) Urine Urobilinogen (0.2-1.0) mg/dL Ur Leukocyte Esterase (NEGATIVE) Urine RBC /HPF Urine WBC (0-5/HPF) /HPF Ur Epithelial Cells /HPF Amorphous Sediment (0/HPF) /HPF Urine Bacteria (0-FEW/HPF) /HPF Urine Mucus /LPF Urine Opiates Screen (NEGATIVE) Ur Oxycodone Screen (NEGATIVE) Urine Methadone Screen (NEGATIVE) Ur Barbiturates Screen (NEGATIVE) U Tricyclic Antidepress (NEGATIVE) Ur Phencyclidine Scrn (NEGATIVE) Ur Amphetamine Screen (NEGATIVE) U Methamphetamines Scrn (NEGATIVE) Urine MDMA Screen (NEGATIVE) U Benzodiazepines Scrn (NEGATIVE) Urine Cocaine Screen (NEGATIVE) U Marijuana (THC) Screen (NEGATIVE) Med Orders - Current: Current Medications Acetaminophen (Tylenol) 650 mg PO Q4H PRN PRN Reason: Pain (Mild 1-3)/fever Last Admin: 01/31/18 02:15 Dose: 650 mg Donepezil HCl (Aricept) 10 mg PO BEDTIME [facility] Last Admin: 01/30/18 20:59 Dose: 10 mg Famotidine (Pepcid) 20 mg PO DAILY [facility] Last Admin: 01/31/18 09:11 Dose: 20 mg Heparin Sodium (Porcine) (Heparin Sodium) 5,000 units SUBCUT Q8HR [facility] Last Admin: 01/31/18 06:00 Dose: Not Given Ibuprofen (Motrin) 400 mg PO Q6H PRN PRN Reason: Pain (moderate 4-6) Levothyroxine Sodium (Synthroid) 50 mcg PO ACBRK [facility] Last Admin: 01/31/18 06:00 Dose: Not Given Memantine (Namenda) 10 mg PO BID [facility] Last Admin: 01/31/18 09:10 Dose: 10 mg Oxybutynin Chloride (Oxybutynin) 5 mg PO TID [facility] Last Admin: 01/31/18 09:11 Dose: 5 mg Polyethylene Glycol (Miralax) 17 gm PO DAILY [facility] Last Admin: 01/31/18 09:09 Dose: 17 gm Senna/Docusate Sodium (Senna Plus) 1 tab PO BEDTIME PRN PRN Reason: Constipation Sodium Chloride (Saline Flush) 10 ml FLUSH ASDIRECTED PRN PRN Reason: Keep Vein Open Last Admin: 01/30/18 10:58 Dose: 10 ml Tamsulosin HCl (Flomax) 0.4 mg PO BEDTIME [facility] Last Admin: 01/30/18 20:59 Dose: 0.4 mg Discontinued Medications Haloperidol Lactate (Haldol) 2 mg IVPUSH STAT ONE Stop: 01/30/18 22:39 Last Admin: 01/30/18 22:53 Dose: 2 mg Haloperidol Lactate (Haldol) 2 mg IVPUSH ONETIME STA Stop: 01/31/18 01:07 Last Admin: 01/31/18 01:17 Dose: 2 mg - Exam General: No Acute Distress HEENT: Pupils Equal Neck: Supple Lungs: Clear to Auscultation Cardiovascular: Regular Rate, Regular Rhythm GI/Abdominal Exam: Normal Bowel Sounds, Soft Extremities: Normal Inspection, Normal Range of Motion - Problem List Review Problem List Initiated/Reviewed/Updated: Yes - My Orders Last 24 Hours: My Active Orders 01/30/18 15:40 Patient Status [ADT] Routine Ambulate [RC] ASDIRECTED VTE/DVT Education [RC] 08,20 Vital Signs [RC] 00,04,08,12,16,20 Acetaminophen [Tylenol] 650 mg PO Q4H PRN Docusate Sodium/Sennosides [Senna Plus] 1 tab PO BEDTIME PRN Ibuprofen [Motrin] 400 mg PO Q6H PRN Resuscitation Status Routine 01/30/18 15:43 Communication Order [RC] 08,20 OT Evaluation and Treatment [CONS] Routine PT Evaluation and Treatment [CONS] Routine 01/30/18 21:00 Donepezil [Aricept] 10 mg PO BEDTIME Memantine [Namenda] 10 mg PO BID Oxybutynin 5 mg PO TID Tamsulosin [Flomax] 0.4 mg PO BEDTIME 01/30/18 22:00 Heparin Sodium 5,000 units SUBCUT Q8HR 01/30/18 Dinner Regular Diet [DIET] 01/31/18 06:00 Levothyroxine [Synthroid] 50 mcg PO ACBRK 01/31/18 09:00 Famotidine [Pepcid] 20 mg PO DAILY Polyethylene Glycol 3350 [MiraLAX] 17 gm PO DAILY - Plan Plan:: #Altered mental status, acute encephalopathy #delirium likely medication induced from opioids will hold opioids, also hold gabapentin and escitalopram monitor overnight for improvement in confusion trial of melatonin 3mg at 6pm #ambulatory dysfunction fall last week PT/OT #rib fracture pain mgt with tylenol and ibuprofen #dementia continue donepezil and namenda #DVT ppx SC heparin
[2018-01-31] MEDS: Tamsulosin 0.4 MG Cap.ER PO SCH (21:25)
[2018-01-31] MEDS: Donepezil 10 MG Tab PO SCH (21:25)
[2018-02-01] MEDS: Heparin Sodium 5,000 Units/ML Vial SUBCUT SCH ×3 (06:08→21:42)
[2018-02-01] MEDS: Levothyroxine 50 MCG Tab PO SCH (06:08)
[2018-02-01] MEDS: Memantine 10 MG Tab PO SCH ×2 (08:50→20:41)
[2018-02-01] MEDS: Famotidine 20 MG Tab PO SCH (08:50)
[2018-02-01] MEDS: Oxybutynin 5 MG Tab PO SCH ×3 (08:50→20:40)
[2018-02-01] MEDS: Polyethylene Glycol 3350 Powder 17 GM Packet PO SCH (08:50)
--- NOTE | 2018-02-01 13:14 | PN ---
DATE: 02/01/2018 SUBJECTIVE: Mr. Mayito Brumfield is an 82-year-old male with medical history significant for hypertension, hyperlipidemia, and history of dementia, admitted to the hospital with increased confusion. For the last 24 hours, the patient received melatonin last night and was able to sleep good. This morning, he denies any chest pain. No shortness of breath. No abdominal pain. No nausea. No vomiting. No diarrhea. OBJECTIVE: Vital Signs: Temperature of 98.2, pulse of 68, blood pressure of 166/60, respiratory rate of 20, and saturating at 94%. General Appearance: The patient is awake and alert and follows commands spontaneously. Not completely oriented to time, place, and person. Cardiovascular: S1 and S2 heard with normal intensity. No gallops. Respiratory: Clear to auscultation bilaterally. No wheeze. No crepitations. Abdomen: Soft. Bowel sounds positive. Nontender. No rigidity. Extremities: No edema in bilateral lower extremities. Neurologic: No gross focal neurological deficit. MEDICATIONS: Reviewed. 1. Tylenol 650 every 4 hours as needed for pain. 2. Aricept 10 mg at bedtime. 3. Pepcid 20 mg daily. 4. Heparin 5000 subcu q.8 hourly. 5. Ibuprofen 400 mg q.6 hours as needed for pain. 6. Levothyroxine 50 mcg daily. 7. Namenda 10 mg twice a day. 8. Oxybutynin 5 mg 3 times a day. 9. MiraLax 17 g daily. 10.Flomax 0.4 mg at bedtime. LABORATORY DATA: No new labs ordered for today. ASSESSMENT: 1. Acute encephalopathy as a complication of opioid medication, resolved. 2. History of dementia. 3. Hypothyroidism. 4. Rib fracture. PLAN: 1. Acute encephalopathy. This is a complication of opioid pain medication. We stopped the opioid pain medication. We will have him on Tylenol 500 mg 3 times a day schedule and use Tylenol 650 every 4 hours as needed for pain and ibuprofen. The patient's family members were explained about ill affects of opioid pain medications. We will also have him Lidoderm transdermal patch as the patient has chronic right shoulder pain. Closely follow. 2. Dementia. The patient is noted to be on Namenda. Continue the same. The patient has trouble sleeping. We will start him on Risperdal tonight. The patient responded well to the melatonin. 3. DVT prophylaxis. Continue with heparin for DVT prophylaxis. 4. Possible discharge in a.m. to memory care unit if he remains hemodynamically stable. [facility] /[id number]
[2018-02-01] MEDS: Acetaminophen 500 MG Tab PO SCH ×2 (13:35→20:39)
[2018-02-01] MEDS ORDERED: Lidocaine 5% 700 MG Patch TOP SCH (20:00)
[2018-02-01] MEDS: Donepezil 10 MG Tab PO SCH (20:40)
[2018-02-01] MEDS: Tamsulosin 0.4 MG Cap.ER PO SCH (20:40)
[2018-02-01] MEDS ORDERED: risperiDONE 0.5 MG Tab PO SCH (21:00)
[2018-02-02] MEDS: Heparin Sodium 5,000 Units/ML Vial SUBCUT SCH (05:53)
[2018-02-02] MEDS: Levothyroxine 50 MCG Tab PO SCH (05:53)
[2018-02-02] MEDS: Memantine 10 MG Tab PO SCH (08:41)
[2018-02-02] MEDS: Oxybutynin 5 MG Tab PO SCH (08:42)
[2018-02-02] MEDS: Acetaminophen 500 MG Tab PO SCH (08:42)
[2018-02-02] MEDS: Famotidine 20 MG Tab PO SCH (08:42)
[2018-02-02] MEDS: Polyethylene Glycol 3350 Powder 17 GM Packet PO SCH (08:43)
--- NOTE | 2018-02-02 11:50 | DISCH ---
ADMITTING DIAGNOSES: 1. Intractable pain. 2. Acute encephalopathy from opiate use. 3. History of underlying dementia. 4. Difficulty ambulation with generalized debility. 5. Rib fracture. DISCHARGE DIAGNOSES: 1. Acute encephalopathy, resolved. 2. Chronic pain syndrome, improved with Tylenol and Lidoderm transdermal patch. 3. Recent rib fractures, right side, improving. 4. Underlying dementia, stable, on risperidone. HISTORY OF PRESENTING ILLNESS: Mr. Mayito Jordan is an 82-year-old male with medical history significant for dementia, was admitted to the hospital with increased confusion and generalized debility with difficulty ambulation. The patient was recently diagnosed with rib fractures and was prescribed opiate pain medications which have caused his acute encephalopathic state. The patient currently lives in an assisted living facility. He had a mechanical fall at the facility. The patient after getting admitted, limited his opiate exposure; and his acute encephalopathy got improved. We prescribed Tylenol for pain and ibuprofen for pain. We also prescribed Lidoderm transdermal patch for pain control which improved his symptoms. He received Risperdal at night for better sleep which has improved his symptoms markedly. The patient remained hemodynamically stable on this admission. He is discharged to the Memory Care Unit in stable condition. He is advised to follow with his primary care physician in the next 1 week of time. PHYSICAL EXAMINATION: On the day of discharge: Vital Signs: Temperature of 98.3, pulse of 62, blood pressure 151/66, respiratory rate of 20, and saturating at 92%. General Appearance: The patient is awake and alert. Follows commands spontaneously. Cardiovascular System: S1 and S2 heard with normal intensity. No gallops. Respiratory System: Clear to auscultation bilaterally. No wheeze. No crepitations. Abdomen: Soft. Bowel sounds positive. Nontender. No rigidity. Extremities: No edema in the bilateral lower extremities. Neurology: No gross focal neurological deficits. DISCHARGE MEDICATIONS: Include: 1. Tylenol 500 mg 3 times a day and 650 mg as needed for pain. 2. Aricept 10 mg at bedtime. 3. Lexapro 10 mg at bedtime. 4. Famotidine 20 mg daily. 5. Neurontin 200 mg at bedtime. 6. Levothyroxine 50 mcg daily. 7. Lidoderm transdermal patch daily. 8. Namenda 10 mg twice a day. 9. Aleve 220 mg twice a day. 10.Ondansetron 4 mg every 4 hours as needed for nausea. 11.Oxybutynin 5 mg 3 times daily. 12.Flomax 0.4 mg at bedtime. 13.Risperdal 0.5 mg oral at bedtime. CONDITION ON ADMISSION: Poor. CONDITION ON DISCHARGE: Stable. DISPOSITION: Discharged to Memory Care Unit. ACTIVITY: As tolerated with fall precautions. DIET: Cardiac healthy diet. FOLLOWUP: Follow up with primary care physician in the next 1 week of time. TIME SPENT: Spent over 35 minutes of time in evaluating and treating this patient and making discharge planning. [facility] /[id number]
== END 2018-02-02 13:30 ==
LOC: DL.ED 09:44 → UNDOADMOB 12:36 → DL.MS 12:36
PROVIDERS: ADMIT Hospitalist; ATTEND Hospitalist
DX: G92 Toxic encephalopathy (principal); T40.605A Adverse effect of unspecified narcotics, initial encounter; F03.90 Unspecified dementia, unspecified severity, without behavioral disturbance, psychotic disturbance, mood disturbance, and anxiety; G89.4 Chronic pain syndrome; S22.41XA Multiple fractures of ribs, right side, initial encounter for closed fracture; W19.XXXA Unspecified fall, initial encounter; E66.9 Obesity, unspecified; Z68.34 Body mass index [BMI] 34.0-34.9, adult; E78.00 Pure hypercholesterolemia, unspecified; K21.9 Gastro-esophageal reflux disease without esophagitis; E03.9 Hypothyroidism, unspecified; Z79.899 Other long term (current) drug therapy; Z88.5 Allergy status to narcotic agent
CPT/HCPCS: 36415; 71045; 80053; 80305; 81001; 83605; 85025; 87040; 97116; 97163; 97167; 99284; 99285; A9270; J1630; J1644; J7050; 96372; 96374; 96376; G0378

== ENCOUNTER 2021-07-28 17:14 | Inpatient (IN) | payer MEDICARE, OTHER ==
[2021-07-28] MEDS ORDERED: Sodium Chloride 0.9% 10 ML Syringe FLUSH PRN (17:58)
[2021-07-28 18:24] LABS: ANION GAP 14.5 mEq/L (7-13); CHLORIDE,CL 107 mmol/L (98-107); SODIUM,NA 147 mmol/L (136-145)
[2021-07-28] MEDS ORDERED: cefTRIAXone 1 GM in Sodium Chloride 0.9% 50 ML IV ONE (18:33)
[2021-07-28] MEDS ORDERED: Azithromycin 500 MG in Sodium Chloride 0.9% 250 ML IV ONE (18:34)
[2021-07-28] MEDS ORDERED: Albuterol/Ipratropium 3.0-0.5 MG/3 ML Neb Soln NEB PRN (20:15)
[2021-07-28] MEDS ORDERED: Piperacillin/Tazobactam 3.375 GM in Sodium Chloride 0.9% 100 ML IV SCH (20:15)
[2021-07-28] MEDS ORDERED: Acetaminophen 325 MG Tab PO PRN (20:20)
[2021-07-28] MEDS ORDERED: Ondansetron 4 MG/2 ML SDV IVPUSH PRN (20:24)
[2021-07-28] MEDS ORDERED: Temazepam 15 MG Cap PO PRN (20:24)
[2021-07-28] MEDS ORDERED: Sodium Chloride 0.9% 1,000 ML IV SCH (20:30)
[2021-07-28] MEDS ORDERED: Piperacillin/Tazobactam 3.375 GM in Sodium Chloride 0.9% 100 ML IV ONE (20:30)
[2021-07-28] MEDS ORDERED: Non-Formulary Medication 1 Each (Naproxen Sodium [Aleve] 220 MG Capsule) PO SCH (21:00)
[2021-07-28] MEDS ORDERED: Albuterol/Ipratropium 3.0-0.5 MG/3 ML Neb Soln NEB SCH (21:00)
[2021-07-28] MEDS ORDERED: risperiDONE 0.5 MG Tab PO SCH (21:00)
[2021-07-28] MEDS ORDERED: Vancomycin 2 GM in Sodium Chloride 0.9% 500 ML IV ONE (22:00)
[2021-07-28] MEDS: Budesonide 0.5 MG/2 ML Neb Susp NEB SCH (23:28)
[2021-07-28] MEDS: Heparin Sodium 5,000 Units/ML Vial SUBCUT SCH (23:46)
[2021-07-29] MEDS: Famotidine 20 MG Tab PO SCH ×3 (00:43→23:45)
[2021-07-29] MEDS: Memantine 10 MG Tab PO SCH ×3 (00:43→23:35)
[2021-07-29] MEDS: Escitalopram 10 MG Tab PO SCH ×2 (00:44→23:50)
[2021-07-29] MEDS: Ibuprofen 400 MG Tab PO SCH ×3 (00:45→23:51)
[2021-07-29] MEDS: Donepezil 10 MG Tab PO SCH ×2 (00:45→23:21)
[2021-07-29] MEDS: guaiFENesin 100 MG/5 ML Soln 5 ML UD Cup PO SCH ×4 (00:46→23:53)
[2021-07-29] MEDS ORDERED: Piperacillin/Tazobactam 3.375 GM in Sodium Chloride 0.9% 100 ML IV SCH (02:30)
[2021-07-29] MEDS: Piperacillin/Tazobactam 3.375 GM in Sodium Chloride 0.9% 100 ML IV SCH ×4 (04:35→22:51)
[2021-07-29] MEDS ORDERED: Albuterol/Ipratropium 3.0-0.5 MG/3 ML Neb Soln NEB SCH (05:00)
[2021-07-29] MEDS: Heparin Sodium 5,000 Units/ML Vial SUBCUT SCH ×3 (05:49→23:19)
[2021-07-29 08:05] LABS: ANION GAP 13.6 mEq/L (7-13); CHLORIDE,CL 110 mmol/L (98-107); SODIUM,NA 149 mmol/L (136-145)
[2021-07-29] MEDS: Levothyroxine 50 MCG Tab PO SCH (08:18)
[2021-07-29] MEDS: Polyethylene Glycol 3350 Powder 17 GM Packet PO SCH (08:19)
[2021-07-29] MEDS: Budesonide 0.5 MG/2 ML Neb Susp NEB SCH ×2 (08:31→18:50)
[2021-07-29] MEDS ORDERED: Gabapentin 100 MG Cap PO SCH (09:00)
[2021-07-29] MEDS: VANCOmycin 1.5 GM/300 ML 1.5 GM in Premix Bag 1 BAG IV SCH ×2 (10:47→23:24)
[2021-07-29] MEDS: Albuterol/Ipratropium 3.0-0.5 MG/3 ML Neb Soln NEB SCH ×2 (13:27→18:50)
[2021-07-29] MEDS: Sodium Chloride 0.45% 1,000 ML IV SCH (15:15)
[2021-07-29 17:25] LABS: BASE EXCESS ARTERIAL 1 mmol/L ((-2)-(+3)); BICARBONATE,ARTERIAL 27.1 mmol/L (22-26); O2 DELIVERY DEVICE OM; O2 SATURATION ARTERIAL 86 % (95-100); PCO2 ARTERIAL 53 mmHg (35-45); PO2 ARTERIAL 56 mmHg (70-100)
[2021-07-29 17:29] LABS: ALLEN TEST PERFORMED; O2 FLOW RATE 4
[2021-07-30] MEDS: Piperacillin/Tazobactam 3.375 GM in Sodium Chloride 0.9% 100 ML IV SCH ×2 (04:19→17:36)
[2021-07-30] MEDS: Albuterol/Ipratropium 3.0-0.5 MG/3 ML Neb Soln NEB SCH ×4 (04:26→18:44)
[2021-07-30] MEDS: Heparin Sodium 5,000 Units/ML Vial SUBCUT SCH (05:56)
[2021-07-30] MEDS: Sodium Chloride 0.45% 1,000 ML IV SCH (05:59)
[2021-07-30 06:52] LABS: ANION GAP 13.1 mEq/L (7-13); CHLORIDE,CL 110 mmol/L (98-107); SODIUM,NA 148 mmol/L (136-145)
[2021-07-30] MEDS: Budesonide 0.5 MG/2 ML Neb Susp NEB SCH ×2 (08:46→18:44)
[2021-07-30] MEDS ORDERED: Loratadine 10 MG Tab PO SCH (09:00)
[2021-07-30] MEDS ORDERED: Ondansetron 4 MG/2 ML SDV IVPUSH PRN (10:25)
[2021-07-30] MEDS ORDERED: Naloxone 2 MG/2 ML Syringe IVPUSH PRN (10:25)
[2021-07-30] MEDS ORDERED: diphenhydrAMINE 25 MG Tab PO PRN (10:25)
[2021-07-30] MEDS ORDERED: diphenhydrAMINE 50 MG/ML SDV IVPUSH PRN (10:25)
[2021-07-30] MEDS ORDERED: LORazepam 2 MG/ML SDV IVPUSH PRN (10:28)
[2021-07-30] MEDS: Polyethylene Glycol 3350 Powder 17 GM Packet PO SCH (10:29)
[2021-07-30] MEDS: Memantine 10 MG Tab PO SCH (10:29)
[2021-07-30] MEDS: Ibuprofen 400 MG Tab PO SCH (10:29)
[2021-07-30] MEDS: VANCOmycin 1.5 GM/300 ML 1.5 GM in Premix Bag 1 BAG IV SCH (10:30)
[2021-07-30] MEDS: Levothyroxine 50 MCG Tab PO SCH (10:30)
[2021-07-30] MEDS: Famotidine 20 MG Tab PO SCH (10:30)
[2021-07-30] MEDS: Morphine PF 30 MG/30 ML PCA Vial IV PRN (11:11)
[2021-07-30] MEDS: guaiFENesin 100 MG/5 ML Soln 5 ML UD Cup PO SCH ×2 (17:34→17:35)
[2021-07-30] MEDS: Atropine 1% Ophth Soln 5 ML BOTTLE SL PRN ×2 (18:44→23:33)
[2021-07-31] MEDS: guaiFENesin 100 MG/5 ML Soln 5 ML UD Cup PO SCH ×2 (02:08→13:06)
[2021-07-31] MEDS: Albuterol/Ipratropium 3.0-0.5 MG/3 ML Neb Soln NEB SCH ×3 (02:08→12:57)
[2021-07-31] MEDS: Morphine PF 30 MG/30 ML PCA Vial IV PRN ×2 (02:41→22:32)
[2021-07-31] MEDS: Atropine 1% Ophth Soln 5 ML BOTTLE SL PRN (02:51)
[2021-07-31] MEDS ORDERED: Atropine 1% Ophth Soln 5 ML BOTTLE SL PRN (10:47)
[2021-07-31] MEDS: Budesonide 0.5 MG/2 ML Neb Susp NEB SCH (12:56)
[2021-08-01] MEDS: Albuterol/Ipratropium 3.0-0.5 MG/3 ML Neb Soln NEB SCH ×4 (08:33→15:13)
[2021-08-01] MEDS: Budesonide 0.5 MG/2 ML Neb Susp NEB SCH (08:33)
[2021-08-01] MEDS ORDERED: Morphine 2 MG/ML SYRINGE IVPUSH PRN (12:20)
[2021-08-01] MEDS: Morphine PF 30 MG/30 ML PCA Vial IV PRN (13:40)
[2021-08-02] MEDS: Morphine PF 30 MG/30 ML PCA Vial IV PRN (04:00)
== END 2021-08-02 07:40 | disposition expired | DRG 177 ==
LOC: DL.ED 17:14 → DL.MS 19:16
PROVIDERS: ADMIT Internal Medicine; ATTEND Internal Medicine
PROC: 5A09357 Assistance with Respiratory Ventilation, Less than 24 Consecutive Hours, Continuous Positive Airway Pressure (ICD-10-PCS; principal; 2021-07-30)
DX: J18.9 Pneumonia, unspecified organism (principal); J15.6 Pneumonia due to other Gram-negative bacteria; J96.01 Acute respiratory failure with hypoxia; J44.0 Chronic obstructive pulmonary disease with (acute) lower respiratory infection; J44.1 Chronic obstructive pulmonary disease with (acute) exacerbation; E87.0 Hyperosmolality and hypernatremia; J15.212 Pneumonia due to Methicillin resistant Staphylococcus aureus; Z51.5 Encounter for palliative care; R32 Unspecified urinary incontinence; R33.9 Retention of urine, unspecified; Z66 Do not resuscitate; J40 Bronchitis, not specified as acute or chronic; H54.7 Unspecified visual loss; E78.00 Pure hypercholesterolemia, unspecified; K59.09 Other constipation; K21.9 Gastro-esophageal reflux disease without esophagitis; N40.1 Benign prostatic hyperplasia with lower urinary tract symptoms; R33.8 Other retention of urine; N39.498 Other specified urinary incontinence; G30.9 Alzheimer's disease, unspecified; F02.80 Dementia in other diseases classified elsewhere, unspecified severity, without behavioral disturbance, psychotic disturbance, mood disturbance, and anxiety; F41.9 Anxiety disorder, unspecified; F32.A Depression, unspecified; E03.9 Hypothyroidism, unspecified; E66.9 Obesity, unspecified; I10 Essential (primary) hypertension; G89.29 Other chronic pain; E78.5 Hyperlipidemia, unspecified; Y95 Nosocomial condition; Z96.659 Presence of unspecified artificial knee joint; Z85.46 Personal history of malignant neoplasm of prostate; Z88.5 Allergy status to narcotic agent; Z79.890 Hormone replacement therapy; Z79.899 Other long term (current) drug therapy; Z87.442 Personal history of urinary calculi; Z68.28 Body mass index [BMI] 28.0-28.9, adult
CPT/HCPCS: 36415; 71045; 80053; 82140; 83605; 83880; 84484; 85025; 87040 ×2; 93005; 93010; 96365; 99285 ×2; J0696; J3490; 36600; 80048; 82803; 94640; 99223; 99233; 99238; A9270-GY; J0456; J1644; J2270; J2274; J2543; J3370; J7030; J7040; J7050; J7620-GY